=== PATIENT | female | born 1965 | race Caucasian/White ===

== ENCOUNTER 2018-12-02 09:34 | Outpatient (CLI) | payer OTHER | END 2018-12-02 23:59 | disposition home or self-care (01) | LOC: CFH 09:34 | PROVIDERS: ATTEND Nurse Practitioner Primary Care | DX: Z12.31 Encounter for screening mammogram for malignant neoplasm of breast (principal); M85.89 Other specified disorders of bone density and structure, multiple sites | CPT/HCPCS: 76641; 77080; 77067 ==

== ENCOUNTER → 2020-12-09 | Outpatient (CLI) | payer OTHER | END | disposition home or self-care (01) | LOC: CFH 14:05 | PROVIDERS: ATTEND Family Medicine | DX: M85.88 Other specified disorders of bone density and structure, other site (principal); I34.0 Nonrheumatic mitral (valve) insufficiency | CPT/HCPCS: 77080 ==